=== PATIENT | male | born 2000 | race Caucasian/White ===

== ENCOUNTER 2022-02-01 00:10 | Emergency (ER) | payer OTHER ==
[~2022-02-01] VITALS: Ht 190.5 cm; Wt 102.8 kg
[2022-02-01 00:49] LABS: MEAN CORPUSCULAR HEMOGLOBIN 31.3 pg (27.0-33.0); MEAN CORPUSCULAR HGB CONC 32.6 g/dl (32.0-36.5); MEAN CORPUSCULAR VOLUME 95.8 fl (80.0-96.0); PLATELET COUNT, AUTOMATED 258 10^3/uL (150-450); WHITE BLOOD COUNT 9.2 10^3/uL (4.0-10.0)
[2022-02-01 01:15] LABS: AMPHETAMINES LEVEL URINE NEGATIVE (NEGATIVE); BARBITURATES URINE NEGATIVE (NEGATIVE); BENZODIAZEPINES URINE NEGATIVE (NEGATIVE); CANNABINOIDS URINE NEGATIVE (NEGATIVE); COCAINE METABOLITE URINE NEGATIVE (NEGATIVE); METHADONE URINE NEGATIVE (NEGATIVE); PHENCYCLIDINE URINE NEGATIVE (NEGATIVE)
[2022-02-01 01:16] LABS: OPIATES URINE NEGATIVE (NEGATIVE)
[2022-02-01 01:17] LABS: ETHYL ALCOHOL (ETHANOL) 0.003 % (0.000-0.010)
[2022-02-01 01:19] LABS: ACETAMINOPHEN LEVEL < 2.0 UG/ML (10.0-20.0); ALBUMIN 4.7 G/DL (3.2-5.2); ALKALINE PHOSPHATASE 51 U/L (46-116); ALT/SGPT 19 U/L (7.0-40); AST/SGOT 22 U/L (<34); BILIRUBIN,DIRECT 0.3 MG/DL (<0.4); BILIRUBIN,TOTAL 0.8 MG/DL (0.3-1.2); BLOOD UREA NITROGEN 12 MG/DL (9-23); CALCIUM LEVEL 9.4 MG/DL (8.5-10.1); CARBON DIOXIDE LEVEL 29 MMOL/L (20-31); CHLORIDE LEVEL 103 MMOL/L (98-107); CREATININE FOR GFR 1.06 MG/DL (0.70-1.30); GLOMERULAR FILTRATION RATE > 60.0 (>60); GLUCOSE, FASTING 107 MG/DL (60-100); POTASSIUM SERUM 3.6 MMOL/L (3.5-5.1); SALICYLATE LEVEL < 3.0 MG/DL (<30); SODIUM LEVEL 141 MMOL/L (136-145); TOTAL PROTEIN 7.7 G/DL (5.7-8.2)
[2022-02-01 01:21] LABS: THYROID STIMULATING HORMONE 1.993 uIU/ML (0.55-4.78)
[2022-02-01 01:51] LABS: RSV AMPLIFICATION NEGATIVE (NEGATIVE)
[2022-02-01 04:05] VITALS: BP 131/82
== END 2022-02-01 04:07 | disposition home or self-care (01) ==
LOC: M ED 00:10
DX: F43.21 Adjustment disorder with depressed mood (principal)

== ENCOUNTER 2022-03-18 19:48 | Emergency (ER) | payer OTHER ==
[~2022-03-18] VITALS: Ht 193 cm; Wt 103.7 kg
[2022-03-18 19:49] VITALS: BP 135/75
== END 2022-03-18 20:00 | disposition left against medical advice (07) ==
LOC: M ED 19:48
DX: Z53.21 Procedure and treatment not carried out due to patient leaving prior to being seen by health care provider (principal)

== ENCOUNTER 2022-08-12 12:17 | Emergency (ER) | payer OTHER ==
[~2022-08-12] VITALS: Ht 190.5 cm; Wt 105.9 kg
[2022-08-12] MEDS ORDERED: FAMOTIDINE 20MG/2ML VIAL IVP ONE (12:50)
[2022-08-12] MEDS ORDERED: methylPREDNISolone 125MG 2ML VIAL IV ONE (12:50)
[2022-08-12 14:45] VITALS: BP 111/71; TEMP 97.5; O2SAT 98
== END 2022-08-12 15:05 | disposition home or self-care (01) ==
LOC: M ED 12:17
DX: R22.0 Localized swelling, mass and lump, head (principal)
CPT/HCPCS: 96374; 96375; 99284; J2930; S0028

== ENCOUNTER 2023-01-18 08:34 | Emergency (ER) | payer OTHER ==
[~2023-01-18] VITALS: Ht 188 cm; Wt 108.8 kg
[2023-01-18 09:36] LABS: HEMATOCRIT 44.8 % (42.0-52.0); HEMOGLOBIN 15.3 g/dl (13.5-17.5); MEAN CORPUSCULAR HEMOGLOBIN 32.1 pg (27.0-33.0); MEAN CORPUSCULAR HGB CONC 34.2 g/dl (32.0-36.5); MEAN CORPUSCULAR VOLUME 94.1 fl (80.0-96.0); PLATELET COUNT, AUTOMATED 255 10^3/uL (150-450); RED BLOOD COUNT 4.76 10^6/uL (4.30-6.10); WHITE BLOOD COUNT 8.2 10^3/uL (4.0-10.0)
[2023-01-18] MEDS ORDERED: NS 1,000 ML IV ONE (10:05)
[2023-01-18] MEDS ORDERED: PANTOPRAZOLE 40MG VIAL IV ONE (10:05)
[2023-01-18] MEDS ORDERED: ONDANSETRON 4MG 2ML VIAL IV ONE (10:05)
[2023-01-18 10:10] LABS: BLOOD UREA NITROGEN 10 MG/DL (9-23); CALCIUM LEVEL 8.5 MG/DL (8.5-10.1); CARBON DIOXIDE LEVEL 28 MMOL/L (20-31); CHLORIDE LEVEL 106 MMOL/L (98-107); CREATININE FOR GFR 0.83 MG/DL (0.70-1.30); GLOMERULAR FILTRATION RATE > 60.0 (>60); GLUCOSE, FASTING 112 MG/DL (60-100); POTASSIUM SERUM 4.2 MMOL/L (3.5-5.1); SODIUM LEVEL 140 MMOL/L (136-145)
[2023-01-18 12:32] VITALS: BP 114/69; TEMP 98.4; O2SAT 100
== END 2023-01-18 12:41 | disposition home or self-care (01) ==
LOC: M ED 08:34
DX: K29.70 Gastritis, unspecified, without bleeding (principal); Z91.013 Allergy to seafood
CPT/HCPCS: 80048; 85027; 96361; 96374; 99283; C9113; J2405

== ENCOUNTER 2023-03-31 16:10 | Emergency (ER) | payer OTHER ==
[~2023-03-31] VITALS: Ht 188 cm; Wt 109.4 kg
[2023-03-31 16:11] VITALS: BP 169/71; TEMP 98.2; O2SAT 100
== END 2023-03-31 17:25 | disposition home or self-care (01) ==
LOC: M ED 16:10
DX: M20.011 Mallet finger of right finger(s) (principal)